=== PATIENT | female | born 2000 | race Caucasian/White ===

== ENCOUNTER 2021-08-30 12:55 | Outpatient (CLI) | payer OTHER, SELFPAY ==
[2021-08-30] VITALS (22 sets, daily range): BP systolic 94–131; BP diastolic 58–88; PULSE 70–110; RESP 16–20; TEMP 37.2; O2SAT 94–100; BMI 25.1
[2021-08-30 13:44] LABS: Mucous, Urine 0 SEEN /hpf (<or=2+)
[2021-08-30 13:55] LABS: Color, Urine Straw (Yellow); Glucose, Dipstick Normal (Normal); Ketone-Dipstick Negative (Negative); Leukocyte Esterase-Dipstick 25 /ul (Negative); Nitrite-Dipstick Negative (Negative); Occult Blood-Urine Negative /ul (Negative); Protein-Dipstick Negative (Negative); Urine Bilirubin Dipstick Negative (Negative); Urine Clarity Clear (Clear); Urine Urobilinogen Normal (Normal); Urine pH 6.5 (5.0 - 8.0)
[2021-08-30 14:02] LABS: White Blood Cells 0-5 SEEN /hpf (0-5)
[2021-08-30 14:03] LABS: Bacteria 2+ /hpf (None Seen); Squamous Epithelial Cells - UA 0-5 SEEN /hpf (5-10)
--- NOTE | 2021-08-30 14:57 | HP.PCM.OB_ITS ---
HPI - General General Date of Admission: 08/30/21 Date of Service: 08/30/21 Chief Complaint: contractions HPI Narrative 21 y/o at 29w0d who presents with ctx's. Started having ctx's this morning that are now getting closer together and stronger. Ctx q 3 min. No LOF or VB. Good FM. has been uncomplicated. Has been measuring S>D in office and has growth US scheduled for next visit at 30 weeks. Prior 39 week vaginal delivery 7lb 7oz male - induction for variable decelerations. PFSH PFSH Home Medications vits,calcium no.78-iron fumarate-folic acid 29 mg-1 mg tablet (Prenatabs FA) 1 tab PO DAILY 08/30/21 [History Last Taken 08/29/21 22:00 1 tab] Allergy/AdvReac Type Severity Reaction Status Date / Time No Known Allergies Allergy Verified 08/30/21 13:16 NST FHR Rate Baby A Baseline: 140 Variability:: Moderate Accelerations:: None Decelerations:: None NST Reactive:: Appropriate for gestational age Uterine Activity:: ctx 3-4 min Vital Signs Vital Signs Vital Signs: 08/30/21 13:16 08/30/21 13:16 08/30/21 13:22 Temperature Temperature Source Temporal Pulse Rate 75 Blood Pressure 131/88 H BP Systolic 131 BP Diastolic 88 08/30/21 13:22 Temperature 99.0 F Temperature Source Pulse Rate Blood Pressure BP Systolic BP Diastolic Weight Weight: 165 lb 2.02 oz Body Mass Index (BMI) 25.1 Physical Exam Const alert and no apparent distress Constitutional Narrative: uncomfortable with ctx's HEENT normocephalic GI GI Narrative: Ctx's palpate moderate Narrative: Cervical exam: External os 1 cm, internal os 0 cm/30/-3, posterior, soft Extremity normal to inspection Labs Labs Labs: Group B Strep DNA Pending Assessment & Plan (1) 29 weeks gestation of : PLAN: Patient presents with ctx's q 3 min. She is uncomfortable with ctx's and they palpate moderate. Cvx closed now. Bedside TAUS showing unstable lie with fetus currently in transverse presentation, subjectively normal fluid. FFN and GBS sent. Start IVF hydration and Mag gtt. BMZ now. Discussed concern for delivery. Possible UTI? UA, urine cx sent. Will monitor for 1 hour and recheck. Discussed with patient if making change, will likely need classical section for delivery given prematurity and unstable lie. Discussed baby will be transferred likely to [place] for further care. Discussed if unchanged and still having ctx's, patient will need transferred to a tertiary care center. Will call MFM technical solutions director at [facility] after recheck to ensure patient is stable for transport. (2) contractions: (3) Unstable lie: (4) Rh negative status during : (5) History of depression:
[2021-08-30] MEDS: Lactated Ringers 1,000 ML 100 ML IV (15:20)
[2021-08-30] MEDS: Magnesium Sulfate 4gm/100mL 4 GM/100 ML IV.SOLN. IV (15:22)
[2021-08-30] MEDS: Betamethasone/Betamethasone 30 MG/5 ML Vial 12 MG IM (15:27)
[2021-08-30 15:31] LABS: Absolute Lymphocyte Count 2.33 X10^3/uL (0.83-4.51); Absolute Neutrophil Count 7.8 X10^3/uL (2.0-7.7); Basophil# 0.03 X10^3/uL; Basophil% 0.3 % (0-1); Eosinophil# 0.11 X10^3/uL; Hemoglobin 11.3 g/dL (12.0-15.0); Lymphocyte # 2.33 X10^3/ul (0.83-4.51); Lymphocyte % 20.8 % (19-41); Mean Corp Hgb Conc 31.4 g/dL (32-36); Mean Corpuscular Volume 92.5 fL (81-99); Mean Platelet Vol. 10.9 fl (6.2-12.0); Monocyte# 0.89 X10^3/uL; Monocyte% 7.9 % (0-10); NRBC Flagged by Analyzer 0 % (0-5); Neutrophil # 7.77 X10^3/uL (2.7-7.7); Neutrophil % 69.2 % (47-70); Platelet Count 195 K/mm3 (150-450); RBC Distribution Width CV 13.1 % (11.6-14.6); RBC Distribution Width SD 43.9 fl (35.1-43.9); Red Blood Count 3.89 M/mm3 (4.2-5.4); White Blood Count 11.2 K/mm3 (4.4-11.0)
[2021-08-30 15:36] LABS: Fetal Fibronectin Negative
[2021-08-30] MEDS: Magnesium Sulfate 4gm/100mL 2 GM/50 ML IV.SOLN. IV (15:39)
[2021-08-30] MEDS: Ondansetron 4 MG/2 ML Vial IV (15:48)
[2021-08-30] MEDS: Magnesium Sulfate 20 GM/500 ML BAG IV (15:55)
[2021-08-30 16:05] LABS: Group B Strep DNA By PCR Negative (Negative); Internal Control PASS; Probe Check PASS; Specimen Processing Control PASS
== END 2021-08-30 16:33 | disposition short-term general hospital (02) ==
LOC: WPOUT 13:08 → WP 13:08
PROVIDERS: Visit Provider Obstetrics & Gynecology
DX: O47.03 False labor before 37 completed weeks of gestation, third trimester (principal); O32.0XX0 Maternal care for unstable lie, not applicable or unspecified; Z3A.29 29 weeks gestation of pregnancy
CPT/HCPCS: 96374; 96361; 59050; 76815; 81001; 82731; 85025; 86850; 86900; 86901; 87081; 87086; 87088; 87653; 94760; 96372; 99218; J7120; G0378; J0702; J2405

== ENCOUNTER 2021-09-01 15:35 | Outpatient (CLI) | payer OTHER, SELFPAY ==
[2021-09-01] VITALS (28 sets, daily range): BP systolic 107–121; BP diastolic 61–77; PULSE 73–111; RESP 16; TEMP 36.8; O2SAT 82–100; BMI 25.2
--- NOTE | 2021-09-01 16:04 | NURSING ---
at the bedside as well as Luis Angel vag exam by is 1 cm outer os inner os is closed 40% effaced and -3 station, baby is breech at this time.
[2021-09-01 16:10] LABS: Absolute Lymphocyte Count 2.37 X10^3/uL (0.83-4.51); Absolute Neutrophil Count 13.1 X10^3/uL (2.0-7.7); Basophil# 0.03 X10^3/uL; Basophil% 0.2 % (0-1); Hematocrit 34.9 % (37-47); Lymphocyte # 2.37 X10^3/ul (0.83-4.51); Mean Corp Hgb Conc 31.5 g/dL (32-36); Mean Corpuscular Hgb 29.2 pg (27.0-32.0); Mean Corpuscular Volume 92.6 fL (81-99); Mean Platelet Vol. 10.9 fl (6.2-12.0); Monocyte# 1.25 X10^3/uL; Monocyte% 7.4 % (0-10); NRBC Flagged by Analyzer 0 % (0-5); Neutrophil # 13.08 X10^3/uL (2.7-7.7); Neutrophil % 77.5 % (47-70); Platelet Count 196 K/mm3 (150-450); RBC Distribution Width CV 13.1 % (11.6-14.6); RBC Distribution Width SD 43.9 fl (35.1-43.9); Red Blood Count 3.77 M/mm3 (4.2-5.4); White Blood Count 16.9 K/mm3 (4.4-11.0)
[2021-09-01 16:20] LABS: International Normalized Ratio 1.1; Partial Thromboplast Time 22.5 Seconds (24.1-36.2); Prothrombin Time (Protime)PT. 13.8 SECONDS (11.7-14.9)
--- NOTE | 2021-09-01 16:21 | OB.TRI.NOTE ---
HPI - General General Date of Admission: 09/01/21 Date of Service: 09/01/21 Chief Complaint: threatened labor HPI Narrative VIET VILLAFANA, is a 21 F who presents at 29 wks with ctx's. She presented 2 days ago with ctx's q 3 min. She was given BMZ, mag gtt. Urine and GBS were sent. Her cervix was closed. She was transferred to [facility] for further care. There she was given her second dose of BMZ and observed overnight. She remained unchanged and was discharge home. She states she is having ctx's q 4 min and feels like they are starting to improve. No lof or vb. Feeling FM. PFSH PFSH Home Medications vits,calcium no.78-iron fumarate-folic acid 29 mg-1 mg tablet (Prenatabs FA) 1 tab PO DAILY 08/30/21 [History Last Taken 08/31/21 2100] Allergy/AdvReac Type Severity Reaction Status Date / Time No Known Allergies Allergy Verified 08/30/21 13:16 NST FHR Rate Baby A Baseline: 140 Variability:: Moderate Accelerations:: 10 x 10 Decelerations:: None NST Reactive:: Appropriate for gestational age Uterine Activity:: ctx q 3 min Assessment & Plan (1) Rh negative status during : (2) Unstable lie: (3) contractions: PLAN: - S/p mag gtt - S/p BMZ x 2 - GBS cx pending - FFN negative - Cvx unchanged - Urine cx neg - TAUS: Breech presentation, subjectively normal fluid - Admit for observation. IVF hydration and labs - Dispo: Monitor (4) 29 weeks gestation of :
[2021-09-01] MEDS: LACTATED RINGERS 500 ML 999 ML IV (16:31)
[2021-09-01] MEDS: Magnesium Sulfate 4gm/100mL 2 GM/50 ML IV.SOLN. IV (16:47)
[2021-09-01] MEDS: Magnesium Sulfate 20 GM/500 ML BAG IV (16:58)
[2021-09-01] MEDS: Ondansetron 4 MG/2 ML Vial IM (17:23)
[2021-09-01] MEDS: Magnesium Sulfate 4gm/100mL 4 GM/100 ML IV.SOLN. IV (17:25)
[2021-09-01] MEDS: Lactated Ringers 1,000 ML 50 ML IV (17:45)
--- NOTE | 2021-09-01 19:17 | NURSING ---
see QS for vital signs
== END 2021-09-01 18:55 | disposition home or self-care (01) ==
LOC: WPOUT 15:45 → WP 15:45
PROVIDERS: Referring Provider Obstetrics & Gynecology; Visit Provider Obstetrics & Gynecology
DX: O60.03 Preterm labor without delivery, third trimester (principal); O32.1XX0 Maternal care for breech presentation, not applicable or unspecified; O32.0XX0 Maternal care for unstable lie, not applicable or unspecified; Z3A.29 29 weeks gestation of pregnancy
CPT/HCPCS: 96365; 96376; 96361; 36415; 59025; 59050; 76815; 85025; 85610; 85730; 86850; 86870; 86900; 86901; 99218; J7120; G0378; J2405

== ENCOUNTER 2021-10-12 22:10 | Outpatient (CLI) | payer OTHER, SELFPAY ==
[2021-10-12 22:14] VITALS: BMI 26.7
[2021-10-12 22:25] VITALS: O2SAT 99
[2021-10-12 22:26] VITALS: BP 123/76; PULSE 92
[2021-10-12 22:27] VITALS: TEMP 36.6
[2021-10-12 23:04] LABS: ROM Internal Control Test YES-OK TO RESULT pt. (Internal QC); ROM Patient Test Negative (Negative)
[2021-10-12 23:15] VITALS: PULSE 82; O2SAT 99
--- NOTE | 2021-10-20 18:43 | OB.TRI.PN ---
Progress Notes Date of Service: 10/20/21 Laboratory Studies: Laboratory Tests 10/12/21 Range/Units 22:23 Vag Amniotic Fld Detect Negative (Negative)
--- NOTE | 2021-10-20 18:44 | OB.TRI.NOTE ---
HPI - General General Date of Admission: 10/20/21 Date of Service: 10/20/21 Chief Complaint: LOF HPI Narrative VIET VILLAFANA, is a 21 F who presents with LOF. PFSH PFSH Home Medications vits,calcium no.78-iron fumarate-folic acid 29 mg-1 mg tablet (Prenatabs FA) 1 tab PO DAILY 08/30/21 [History Last Taken 10/18/21] Allergy/AdvReac Type Severity Reaction Status Date / Time No Known Allergies Allergy Verified 10/19/21 00:23 NST FHR Rate Baby A Baseline: 150 Variability:: Moderate Accelerations:: 15 x 15 Decelerations:: None NST Reactive:: Yes FHR Category:: Category I Assessment & Plan (1) 35 weeks gestation of : PLAN: NST reactive No in labor ROM negative
== END 2021-10-12 23:45 | disposition home or self-care (01) ==
LOC: WPOUT 22:13 → WP 22:14
PROVIDERS: Obstetrics & Gynecology; Visit Provider Obstetrics & Gynecology
DX: Z34.93 Encounter for supervision of normal pregnancy, unspecified, third trimester (principal); Z3A.35 35 weeks gestation of pregnancy
CPT/HCPCS: 59025; 59050; 84112; 99218; G0378

== ENCOUNTER 2021-10-18 23:55 | Outpatient (CLI) | payer OTHER, SELFPAY ==
[2021-10-19 00:20] VITALS: BP 112/74; PULSE 84; TEMP 36.6
[2021-10-19 00:21] VITALS: BMI 26.2
[2021-10-19 00:22] VITALS: PULSE 89; O2SAT 94
[2021-10-19] MEDS: Lactated Ringers 1,000 ML 999 ML IV (01:48)
[2021-10-19 02:24] VITALS: BP 114/72; PULSE 80; TEMP 36.4
--- NOTE | 2021-10-19 11:14 | OB.TRI.PN ---
Progress Notes Progress Note: Presents at 36weeks for irregular contractions and vaginal pressure. . No vaginal bleeding or leakage of fluid. O: Closed, no signs of labor Reactive NST Assessment & Plan (1) False labor: PLAN: Plan false labor, d/c home
== END 2021-10-19 03:20 | disposition home or self-care (01) ==
LOC: WPOUT 23:57 → WP 23:58
PROVIDERS: Visit Provider Advanced Practice Midwife
DX: O47.03 False labor before 37 completed weeks of gestation, third trimester (principal); Z3A.36 36 weeks gestation of pregnancy
CPT/HCPCS: 96360; 59025; 59050; 99218; J7120; G0378

== ENCOUNTER 2021-11-08 04:55 | Inpatient (IN) | payer OTHER, SELFPAY ==
[2021-11-08] VITALS (38 sets, daily range): BP systolic 122–145; BP diastolic 72–97; PULSE 68–93; RESP 14–16; TEMP 36.8–37.3; O2SAT 97–100; BMI 27.0
[2021-11-08] MEDS: Lactated Ringers 1,000 ML 50 ML IV (05:00)
[2021-11-08] MEDS: Oxytocin 30 units/NS 500 ml 30 UNITS/500 ML IV.SOLN 334 UNITS IV (05:06)
--- NOTE | 2021-11-08 05:14 | PCM.HP.OB ---
HPI - General General Date of Admission: 11/08/21 Date of Service: 11/08/21 Chief Complaint: labor HPI Narrative VIET VILLAFANA, is a 21 F who presents at 39w0d ruptured at 9 cm dilated. She states ctx's had just started. Maternal Data Information Final MITCH: 11/15/21 Final MITCH Source: LMP PFSH PFSH Home Medications vits,calcium no.78-iron fumarate-folic acid 29 mg-1 mg tablet (Prenatabs FA) 1 tab PO DAILY 08/30/21 [History Last Taken 10/18/21] Allergy/AdvReac Type Severity Reaction Status Date / Time No Known Allergies Allergy Verified 10/19/21 00:23 History Past Pregnancies Del. Date Name GA/Weeks Outcome Route Bth Weight Infant Gen Labor Lgth Anesthesia Del Locatn Provider FOB Unknown 39 live - full term Vital Signs Vital Signs Vital Signs: 11/08/21 04:58 11/08/21 04:58 11/08/21 05:10 Pulse Rate 76 Blood Pressure 145/93 H 134/97 H BP Systolic 145 134 BP Diastolic 93 97 11/08/21 05:10 Pulse Rate 92 Blood Pressure BP Systolic BP Diastolic Labs Labs Labs: Blood Type B NEGATIVE Antibody Screen POSITIVE H Hct 34.9 % (37-47) L Hgb 11.0 g/dL (12.0-15.0) L Group B Strep DNA Negative (Negative) Assessment & Plan (1) 39 weeks gestation of : PLAN: - Patient presented to L&D and precipitously delivered in less than [address] Wilcox was present for delivery. See her operative report for details. GBS negative. Rhogam candidate and will need MMR . Routine care. (2) Rubella non-immune status, antepartum: (3) Rh negative state in antepartum period: (4) History of depression: (5) Active labor at term: (6) H/O pre-term labor:
[2021-11-08 05:19] LABS: Absolute Lymphocyte Count 3.78 X10^3/uL (0.83-4.51); Absolute Neutrophil Count 6.2 X10^3/uL (2.0-7.7); Basophil# 0.04 X10^3/uL; Basophil% 0.4 % (0-1); Eosinophils% 0.9 % (0-5); Hematocrit 38.2 % (37-47); Hemoglobin 11.9 g/dL (12.0-15.0); Lymphocyte # 3.78 X10^3/ul (0.83-4.51); Lymphocyte % 33.7 % (19-41); Mean Corp Hgb Conc 31.2 g/dL (32-36); Mean Corpuscular Hgb 27.4 pg (27.0-32.0); Mean Platelet Vol. 12.2 fl (6.2-12.0); Monocyte# 1.03 X10^3/uL; Monocyte% 9.2 % (0-10); NRBC Flagged by Analyzer 0 % (0-5); Neutrophil # 6.15 X10^3/uL (2.7-7.7); Neutrophil % 54.7 % (47-70); Platelet Count 167 K/mm3 (150-450); RBC Distribution Width CV 15.9 % (11.6-14.6); RBC Distribution Width SD 50.8 fl (35.1-43.9); Red Blood Count 4.34 M/mm3 (4.2-5.4); White Blood Count 11.2 K/mm3 (4.4-11.0)
--- NOTE | 2021-11-08 05:36 | EX.PCM.OBRPT ---
Assessment & Plan (1) Active labor at term: (2) Rh negative state in antepartum period: (3) Rubella non-immune status, antepartum: (4) 39 weeks gestation of : (5) False labor: (6) History of depression: (7) Rh negative status during : (8) 29 weeks gestation of : (9) Precipitous delivery: (10) Vaginal delivery: COMMENT: 39 for [facility] IAL precipitous delivery uncomplicated Vaginal Delivery Operative Information Date of Procedure: 11/08/21 Pre-Operative Diagnosis: IAL precipitous delivery Post-Operative Diagnosis: same Surgery / Procedure Performed: Spontaneous Vaginal Delivery Type of Anesthesia: None Special Medications: none Estimated Blood Loss: 100 Fluids Replaced: crystalloid Findings Description of Procedure: Patient began pushing on hands and knees and delivered the head in the KITA presentation. The head was delivered atraumatically and a loose nuchal cord ?1 was identified and the infant delivered through without complication. The anterior and posterior shoulders delivered without complication followed by the rest of the and the was placed on the maternal abdomen. Delayed cord clamping was employed for approximately 60 seconds. Cord was clamped and cut and gentle traction was applied to the cord and the placenta delivered spontaneously immediately following it was noted to be intact with three-vessel cord. The perineum and vagina were inspected and noted to have no laceration. EBL was 100 cc. Patient and infant tolerated delivery well. Presentation: KITA Amniotic Membrane Rupture Type: Spontaneous Amniotic Fluid Description: Clear Placental Delivery Description: Spontaneous Placenta Disposition: [facility] Cord Vessel Description: 3 Vessels Cord Entanglement: None and Around neck x 1, tight Infant A Gender: Male Delayed Cord Clamping: Yes Post Vaginal Delivery Medications Given After Delivery: IV Pitocin Episiotomy Description: None Laceration: None Complication Complications: None Procedures Urinary/Genital [id number]: [id number] Vaginal Delivery Only
[2021-11-08] MEDS: Ibuprofen 600 MG Tablet PO ×3 (06:54→21:02)
[2021-11-08] MEDS: Methylergonovine 0.2 MG/ML Ampul IM (06:58)
--- NOTE | 2021-11-08 17:53 | CASEMGMT ---
Addendum entered by Bonny Feliz 11/08/21 18:09: Nb's apgars 9/9 Original Note: Social Work Note Referral Reason: History of Post Depression Referral Source: MD FAVIAN Dominguez said that MOB is doing well with the nb. SW met with MOB and FOB in the room. MOB was dressing the nb and appeared to be appropriately bonding with the nb. Of note MOB PHQ2 score was 0. Mom: Sasha PNC: [facility] Control: NuvaRing Baby: Abad : 11/08/21 Weight: 8# 7 ounces Deputy Juvenile Officer: Manuela Perry Breast feeding CHEMA Other children: 2 year old son, Munir who is with patient's father. Housing: MOB and FOB reside in a house with the 2 children. Transportation: MOB said that she has access to a vehicle and can drive Supplies: CHEMA reports that she has a carseat, crib, pack n play and nb supplies. Supports: MOB reports her supports are Florentino, her mom and her family. MOB said my entire family is a support. MOB said that her family resides in [facility] and the FOB family is local. Education Level: MOB graduated high school and no learning issues. MOB also had attended college for 1 1/2 years. Employment: MOB is not employed outside the house Resource: MOB reports no JFS, no WIC, no HMG, no legal or CSB issues. Past Counseling at [facility] in [facility] and a Community Marketing Coordinator who was a big help. Patient is not seeing a counseling provider currently. Patient voiced that she checks in with the [facility] regarding her mental health. FOB: Florentino- Time Together 3 1/2 years Involved at - Yes Employment- Sales at [employer] Other children: Munir, age 2. FOB MH/AOD/DV History: Denied by FOB Maternal MH History: MOB said that she had post and her symptoms were losing interest in things I liked and being robotic. Patient said that she was put on Zoloft and then they switched her medication to a medication that hurt me which was Lexapro. Patient said that the Lexapro shot me to a dark place. Patient reported Suicidal Ideation 1 year ago and was hospitalized for 5 days at [facility]. Patient said that while at [facility] they put patient on Seroquel and Effexor and it worked great. Patient said that when she found out she was she weaned herself off in 3-4 weeks. Patient said that she wants to go back on medication but is unsure what would be good with breast feeding. Patient said that she is not opposed to Zoloft as it had worked in the past but the goal would be to return to Effexor and Seroquel. Patient is prescribed her psych medication from her PCP in [facility]. Patient said that she has not felt suicidal since release from [facility]. Patient denied any current SI. Patient was educated on Shaken Baby, PPD and Safe Sleeping No MOB history of tobacco, alcohol or other drugs. MOB declined HMG referral. Plan: Home at discharge. Bonny HANCOCK
[2021-11-09 00:38] VITALS: BP 130/77; PULSE 72; RESP 16; TEMP 36.1; O2SAT 100
[2021-11-09 04:11] VITALS: BP 107/71; PULSE 72; RESP 16; TEMP 37.2; O2SAT 100
--- NOTE | 2021-11-09 04:28 | DCINST_ITS ---
Discharge Instructions Diet Discharge Diet: No restrictions Activity Discharge Activity: May Shower May shower in (days): 0 May resume sexual activity in: 6 weeks Ice area for (Minutes): 15 Weight Bearing Status: Weight bearing as tolerated Lifting Restrictions: Nothing heavier than baby Dressing / Incision Call your doctor if you observe: Fever of 101 or Higher, Coldness, Increased Pain, Numbness or Tingling, Change in Color, Inability to urinate, Inability to have a bowel movement, Using more than 1 pad per hour, Shortness of breath, Dizziness, Fainting spells, Swelling in the ankles, Chest pain, Increased palpitations (irregular heartbeat), Calf discomfort and Uncontrolled pain Follow Up Care Please Follow Up With: Mikayla Gaxiola DO When: 1-2 weeks if you desire and early visit 6 weeks visit Test Results: Test results from this visit will be discussed in further detail at your follow- up appointment, if applicable. Discharge Plan Admission Admit Date/Time: 11/08/21 04:55 Primary Reason for Your Visit: delivery Attending Provider: Kiara Bajwa Primary Care Provider: Care Physician,Jerica Primary Instructions Patient Instructions: After a Vaginal Discharge Orders/Prescriptions Prescriptions: Continued Prenatabs FA 29-1 mg Tablet 1 tab PO DAILY Referrals / Follow Up: Care Physician,Jerica Primary [Primary Care Provider] - Disposition Disposition (needs filled in before D/C Order can be placed): Home, Self Care
--- NOTE | 2021-11-09 04:29 | PCM.PN.OB ---
Subjective Subjective Pt doing well. Having minimal cramping. Lochia is normal. She is ambulating and voiding without difficulty. She denies chest pain, shortness of breath, leg pain. Tolerating regular diet without nausea or vomiting. She desires to go home today. Objective Data Objective Data Vital Signs: Vital Signs Temp Pulse Resp BP Pulse Ox O2 Del Method 98.9 F 72 16 107/71 100 Room Air 11/09/21 04:11 11/09/21 04:11 11/09/21 04:11 11/09/21 04:11 11/09/21 04:11 11/09/21 04:11 Oxygen Delivery Method Room Air Weight: 178 lb Body Mass Index (BMI) 27.0 Intake & Output: Intake and Output for Last 24 Hours 11/07/21 11/08/21 11/09/21 23:59 23:59 23:59 Intake Total 526.67 / 526.67 Output Total 1000 / 1000 Balance -473.33 / -473.33 Lab / Micro Data Result Diagrams: 11/08/21 05:00 Labs: Laboratory Results - last 24 hr 11/08/21 05:00: WBC 11.2 H, RBC 4.34, Hgb 11.9 L, Hct 38.2, MCV 88.0, MCH 27.4, MCHC 31.2 L, RDW Std Deviation 50.8 H, RDW Coeff of Ronal 15.9 H, Plt Count 167, MPV 12.2 H, Immature Gran % (Auto) 1.100 H, Neut % (Auto) 54.7, Lymph % (Auto) 33.7, [place] % (Auto) 9.2, Eos % (Auto) 0.9, Baso % (Auto) 0.4, Absolute Neuts (auto) 6.2, Absolute Lymphs (auto) 3.78, Nucleated RBC % 0 11/08/21 05:00: Blood Type B NEGATIVE, Antibody Screen TNP 11/08/21 05:00: Antibody Screen POSITIVE, Antibody Identification ANTI-D Physical Exam Const alert and no apparent distress General Appearance: comfortable HEENT normocephalic Resp normal respiratory effort GI soft to palpation GI Narrative: FF@U-1 Extremity no calf tenderness Assessment & Plan (1) Precipitous delivery: PLAN: PPD#1 s/p precipitous vaginal delivery. Desires discharge and meeting all milestones for discharge. D/c home today. (2) Vaginal delivery:
[2021-11-09] MEDS: Ibuprofen 600 MG Tablet PO (06:55)
[2021-11-09 07:38] VITALS: BP 109/65; PULSE 68; RESP 22; TEMP 36.5; O2SAT 97
[2021-11-09 10:42] VITALS: RESP 18
[2021-11-09 12:22] VITALS: BP 113/66; PULSE 84; RESP 16; TEMP 36.6; O2SAT 97
== END 2021-11-09 13:08 | disposition home or self-care (01) | DRG 807 ==
PROVIDERS: Admitting Provider Obstetrics & Gynecology; Visit Provider Obstetrics & Gynecology
DX: O69.81X0 Labor and delivery complicated by cord around neck, without compression, not applicable or unspecified (principal); Z37.0 Single live birth; O62.3 Precipitate labor; Z3A.39 39 weeks gestation of pregnancy
CPT/HCPCS: 59050; 85025; 86850; 86870; 86900; 86901; 99218; J7120; G0378

== ENCOUNTER 2022-11-09 20:34 | Emergency (ER) | payer OTHER, SELFPAY ==
[2022-11-09 20:36] VITALS: BP 116/81; PULSE 110; RESP 24; TEMP 36.6; O2SAT 99; BMI 21.5
[2022-11-09 20:39] VITALS: BP 116/81; PULSE 110; RESP 24; TEMP 36.6; O2SAT 99
--- NOTE | 2022-11-09 22:42 | ED.VIS.DYS ---
HPI History of Present Illness Chief Complaint: [facility] Medical History Depression H/O pre-term labor History of depression depression Precipitous delivery Rh negative status during Vaginal delivery Home Medications vits,calcium no.78-iron fumarate-folic acid 29 mg-1 mg tablet (Prenatabs FA) 1 tab PO DAILY Check with primary doctor 08/30/21 [History Last Taken 10/18/21] metoclopramide HCl 5 mg tablet (Reglan) 5 mg PO Q8H PRN PRN nausea and vomiting 7 days #20 tabs 11/10/22 [Rx Last Taken Unknown] Allergy/AdvReac Type Severity Reaction Status Date / Time No Known Allergies Allergy Verified 11/09/22 20:40 Social History Smoking Status: Never smoker EXAM Physical Exam Const Vital Signs: 11/09/22 20:36 11/09/22 20:39 11/09/22 22:41 Temperature 97.8 F 97.8 F Temperature Source Temporal Temporal Pulse Rate 110 H 110 H Respiratory Rate 24 H 24 H Respiratory Effort Normal Non-Labored Blood Pressure 116/81 H 116/81 H Blood Pressure Mean 92 92 Pulse Ox 99 99 Oxygen Delivery Method Room Air Room Air [facility] MDM MDM Narrative Medical decision making narrative: HISTORY OF PRESENT ILLNESS: 22-year-old female presents with cough/cold symptoms for 3 to 4 weeks. She also complains of dizziness. She further states she presented today secondary to severe headache. Notes occipital headache. Denies vomiting. Notes photophobia and nausea. Patient denies sudden onset or thunderclap headache, denies maximal intensity within 1 minute, vomiting, neck pain or stiffness, changes in vision, fever, history malignancy, syncope, seizures. REVIEW OF SYSTEMS: Pertinent positives: Headache, muscle aches, fatigue Pertinent negatives: Focal numbness weakness or loss of vision PHYSICAL EXAM: Nursing triage notes reviewed, Vital signs reviewed Constitutional: please see mdm HENT: MMM Eyes: Pupils equal round and reactive to light, Extraocular muscles intact Neck: No stridor, no JVD, full neck ROM Lungs: Clear to auscultation, No wheezing or rales. No increased work of breathing, no conversational dyspnea, no accessory muscle use, no nasal flaring. No respiratory distress noted Heart: Regular rate and rhythm, No murmurs, No rubs and No gallops, 2+ distal pulses (radial, femoral, posterior tibial) in all extremities Abdomen: Soft, there is no tenderness, rigidity, rebound or guarding, no obvious peritoneal signs, no palpable pulsatile abdominal masses, no auscultated abdominal bruit : No CVAT Extremities: No edema Neuro: Alert and oriented x3, neuro exam at baseline, cranial nerves II through XII are intact. No pain with extraocular muscle movement. There is negative test of skew. Normal speech. 5 of 5 strength in upper and lower extremities in flexion extension. Intact sensation to light touch in upper and lower extremity dermatomes. No truncal or extremity ataxia. No dysdiadochokinesia. Normal gait. 2+ reflexes. No meningeal signs. Negative Babinski. NIH of 0 Skin: No rash or lesions noted MEDICAL DECISION MAKING: Chief Complaint: Cough and cold symptoms External records reviewed: No recent ED visits or hospitalizations Factors affecting care: none Social determinants of health: none History obtained from others: none Consults: none ALL IMAGES (IF OBTAINED) HAVE BEEN PERSONALLY REVIEWED AND INTERPRETED BY MYSELF. MDM Narrative: Initially mildly tachycardic, tachypneic otherwise hemodynamically stable afebrile and nontoxic-appearing I considered the following differential diagnosis: Subarachnoid hemorrhage, epidural hematoma, ICH, meningitis, carotid artery dissection, primary headache (cluster, tension, migraine) Patient's neurologic exam and history not consistent with an acute life-threatening secondary headache such as epidural hematoma ICH or meningitis. There are no meningeal signs. Patient no focal deficits. Suspect she suffered from a viral illness given her the 4 weeks of congestion as well as sick contacts with her boyfriend. I tested her for COVID and gave a headache cocktail orally. Upon reassessment repeat neurologic exam The patient and/or family, caregivers express understanding. The patient and/or family, caregivers agrees with the plan. Shared decision making: I will have a discussion with the patient and or visitors regarding risk/benefits of further testing or admission. They will be made aware of of the risk/benefits inherent in this decision they will be given the opportunity to voice understanding. Total critical care time today provided was at least 0 minutes. This excludes separately billable procedures. Critical care time (if documented) is secondary to the patient having high probability of clinically significant/life threatening deterioration in the patient's condition which required my urgent intervention. Impression: 1. Headache 2. Viral URI Dispo: Discharge Discharge Plan Triage Chief Complaint: Cold Sx ED Provider: Jake Carolina Dx/Rx/DC Orders Instructions: ED URI, Viral, No Abx (Adult) Prescriptions: New metoclopramide HCl [Reglan] 5 mg tablet 5 mg PO Q8H PRN PRN (Reason: nausea and vomiting) 7 Days Qty: 20 0RF No Action Prenatabs FA 29-1 mg Tablet 1 tab PO DAILY Primary Care Provider: Care Physician,No Primary Referrals: Daryl Lowry MD [Med Staff - Digitizer] - Care Physician,No Primary [Primary Care Provider] - Activity Restrictions/Additional Instructions: Thank you for trusting us with your care today! Please take Tylenol (2 pills, 650 mg), ibuprofen (2 pills, 400 mg) every 6 hours as needed for pain and fever control. Please take Reglan as needed for nausea and headache. Please return to the emergency department if your symptoms change or worsen. Please follow with your primary care physician for further outpatient evaluation and management. Disposition Disposition: Home, Self Care
[2022-11-09] MEDS: Metoclopramide 10 MG/10 ML UDC 5 MG PO (23:16)
[2022-11-09] MEDS: Acetaminophen 325 MG Tablet 650 MG PO (23:17)
[2022-11-09] MEDS: Ibuprofen 200 MG Tablet 400 MG PO (23:17)
[2022-11-10 00:23] VITALS: BP 112/79; PULSE 108; RESP 20; O2SAT 97
== END 2022-11-10 00:28 | disposition home or self-care (01) ==
PROVIDERS: Emergency Provider Emergency Medicine; Visit Provider Emergency Medicine
DX: J06.9 Acute upper respiratory infection, unspecified (principal); R11.0 Nausea; R51.9 Headache, unspecified; R42 Dizziness and giddiness
CPT/HCPCS: 87811; 99283

== ENCOUNTER → 2024-09-25 | Outpatient (CLI) | payer OTHER, SELFPAY ==
[2024-09-25 20:00] LABS: Hematocrit 43.4 % (37-47); Hemoglobin 14.3 g/dL (12.0-15.0); Immature Granulocytes Count 0.020 X10^3/uL (0.0-0.0); Mean Corp Hgb Conc 32.9 g/dL (32-36); Mean Corpuscular Volume 91.8 fL (81-99); Mean Platelet Vol. 11.1 fl (6.2-12.0); NRBC Flagged by Analyzer 0 % (0-5); Platelet Count 255 K/mm3 (150-450); RBC Distribution Width CV 11.9 % (11.6-14.6); RBC Distribution Width SD 40.4 fl (35.1-43.9); Red Blood Count 4.73 M/mm3 (4.2-5.4); White Blood Count 7.2 K/mm3 (4.4-11.0)
[2024-09-25 20:04] LABS: AST(SGOT) 28 U/L (<=31); Alanine Aminotransfer ALT/SGPT 24 U/L (<=34); Albumin, Serum 4.4 g/dL (3.5-5.0); Alkaline Phosphatase 69 U/L (35-104); Anion Gap 15 (5-15); BUN 10 mg/dL (4-19); BUN/Creat Ratio 10.7 RATIO (10-20); Calcium,Total 9.5 mg/dL (7.6-11.0); Carbon Dioxide 19.4 mmol/L (21.0-32.0); Chloride 102 mmol/L (98-108); Ferritin 67 ng/mL (22-378); Free T3 3.5 pg/mL (2.18-3.98); Globulin 3.4 g/dL (2.2-4.2); Glucose 85 mg/dL (70-99); Potassium 3.9 mmol/L (3.3-5.1); Vitamin D,25 Hydroxy 36.5 ng/mL (30-100)
[2024-09-28 12:09] LABS: Anti-dsDNA Ab 9 IU/mL (0-9)
== END | disposition home or self-care (01) ==
LOC: MTLAB 14:59
PROVIDERS: Referring Provider Physician Assistant; Visit Provider Physician Assistant
DX: L65.9 Nonscarring hair loss, unspecified (principal)
CPT/HCPCS: 36415; 80053; 82306; 82627; 82728; 84403; 84439; 84443; 84481; 85025; 86038; 86225; 86376; 82626